=== PATIENT | female | born 1980 | race Caucasian/White ===

== ENCOUNTER → 2016-10-17 | Outpatient (REF) | payer MEDICAID | LOC: LAB 16:31 | PROVIDERS: ATTEND Family Medicine | DX: Z51.81 Encounter for therapeutic drug level monitoring (principal); Z79.01 Long term (current) use of anticoagulants | CPT/HCPCS: 85610 ==

== ENCOUNTER → 2016-11-17 | Outpatient (REF) | payer MEDICAID | LOC: LAB 08:34 | PROVIDERS: ATTEND Family Medicine | DX: Z51.81 Encounter for therapeutic drug level monitoring (principal); Z79.01 Long term (current) use of anticoagulants | CPT/HCPCS: 85610 ==

== ENCOUNTER → 2016-12-12 | Outpatient (REF) | payer MEDICAID ==
[~2016-12-12] MED LIST: BACL10TA; LANS30CA; LANS30TA4 PO; LEVE500T PO; LEVO150T; MINO100C40; OMG1KC PO; WARF4TAB
== END ==
LOC: LAB 09:04
PROVIDERS: ATTEND Family Medicine
DX: Z51.81 Encounter for therapeutic drug level monitoring (principal); Z79.01 Long term (current) use of anticoagulants
CPT/HCPCS: 85610

== ENCOUNTER → 2017-01-09 | Outpatient (REF) | payer MEDICAID | LOC: LAB 08:57 | PROVIDERS: ATTEND Family Medicine | DX: Z51.81 Encounter for therapeutic drug level monitoring (principal); Z79.01 Long term (current) use of anticoagulants | CPT/HCPCS: 85610 ==